=== PATIENT | female | born 2000 | race Caucasian/White ===

== ENCOUNTER 2020-04-04 13:29 | Emergency (ER) | payer BC ==
[~2020-04-04] VITALS: Ht 172.7 cm; Wt 63.7 kg
[2020-04-04] MEDS ORDERED: normal saline 1000ML IV soln IVB ONE ×2 (14:20→15:15)
[2020-04-04] MEDS ORDERED: ondansetron/PF 4mg/2ml inj IV ONE (14:20)
[2020-04-04 14:46] LABS: BASOPHILS % (AUTO) 0.1 % (0-1); EOSINOPHILS % (AUTO) 0.2 % (0-6); HEMATOCRIT 50.7 % (35.0-45.0); HEMOGLOBIN 16.7 g/dl (12.0-16.0); LYMPHOCYTES # (AUTO) 1.1 X10'3 (1.1-4.8); LYMPHOCYTES % (AUTO) 4.7 % (21-51); MEAN CORPUSCULAR HEMOGLOBIN 29.6 PG (27.0-31.0); MEAN CORPUSCULAR HGB CONC 32.8 g/dL (33.0-36.5); MEAN CORPUSCULAR VOLUME 90.3 FL (78-98); MEAN PLATELET VOLUME 9.8 FL (7.4-10.4); MONOCYTES # (AUTO) 0.8 X10'3 (0-0.9); MONOCYTES % (AUTO) 3.4 % (2-12); NEUTROPHILS % (AUTO) 91.6 % (42-75); PLATELET COUNT 235 X10'3 (140-440); RED BLOOD COUNT 5.62 X10'6 (4.20-5.60); RED CELL DISTRIBUTION WIDTH 13.3 % (11.5-14.5)
[2020-04-04 15:03] LABS: ALANINE AMINOTRANSFERASE 20 U/L (12-78); ALBUMIN 5.2 G/DL (3.4-5.0); ALBUMIN/GLOBULIN RATIO 1.4 (1.1-1.5); ALKALINE PHOSPHATASE 70 IU/L (46-116); ANION GAP 5 (8-16); ASPARTATE AMINO TRANSFERASE 12 U/L (10-37); BILIRUBIN,TOTAL 0.7 MG/DL (0.1-1.0); BLOOD UREA NITROGEN 14 MG/DL (7-18); BUN/CREATININE RATIO 17.1 (6.6-38.0); CALCIUM 9.4 MG/DL (8.5-10.1); CHLORIDE 105 MMOL/L (99-107); CREATININE 0.82 MG/DL (0.40-0.90); GLUCOSE 107 MG/DL (70-104); LIPASE 101 U/L (73-393); POTASSIUM 4.6 MMOL/L (3.5-5.1); SODIUM 137 MMOL/L (135-145); TOTAL CARBON DIOXIDE 26.9 MMOL/L (24-32); TOTAL PROTEIN 8.9 G/DL (6.4-8.2); eGFR 88 ML/MIN
[2020-04-04 15:36] LABS: HCG SERUM QL NEGATIVE
--- NOTE | 2020-04-04 15:58 | NUR ---
Mother [facility] [phone].
[2020-04-04 16:04] LABS: CLARITY,URINE SLIGHTLY CLOUDY (Clear); COLOR,URINE YELLOW (Yellow); GLUCOSE, URINE NEGATIVE (Neg); KETONES,URINE TRACE mg/dl (Neg); LEUKOCYTE ESTERASE ,URINE NEGATIVE (Neg); NITRITES, URINE NEGATIVE (Neg); OCCULT BLOOD,URINE SMALL (Neg); PH,URINE 5.5 (4.8-8.0); PROTEIN,URINE >=300 mg/dl (Neg); UROBILINOGEN,URINE 0.2 E.U/dL (0.2-1.0)
[2020-04-04 16:08] LABS: UA COLLECTION TYPE CLN CATCH MIDSTREAM
[2020-04-04 16:10] LABS: BACTERIA,URINE 2+ /HPF (Neg); SQUAMOUS EPITHELIAL CELL,UR MODERATE /LPF (FEW); WBC,URINE TNTC /HPF (0-4)
[2020-04-04 16:11] LABS: MUCUS STRANDS MODERATE /LPF (Neg)
[2020-04-04] MEDS ORDERED: AMOX-422 PO (16:36)
[2020-04-04] MEDS ORDERED: LACT1CAP60 PO (16:36)
[2020-04-04] MEDS ORDERED: ONDA4TAB6 PO (16:45)
[2020-04-04 17:08] VITALS: BP 123/62
== END 2020-04-04 17:09 | disposition home or self-care (01) ==
LOC: ER 13:30 → EDBD 13:30 → ER 17:09
DX: A08.4 Viral intestinal infection, unspecified (principal); R11.2 Nausea with vomiting, unspecified; R07.9 Chest pain, unspecified; R10.31 Right lower quadrant pain; Z72.89 Other problems related to lifestyle; Z79.2 Long term (current) use of antibiotics; Z79.899 Other long term (current) drug therapy
CPT/HCPCS: 36415; 71045; 74176; 80053; 81001; 83605; 83690; 84145; 84703; 85025; 87040; 87088; 93005; 96361; 96374; 99285; J2405; J7030

== ENCOUNTER 2020-04-13 10:49 | Emergency (ER) | payer BC ==
[~2020-04-13] VITALS: Ht 172.7 cm; Wt 64.0 kg
[~2020-04-13 10:49] MED LIST: AMOX-422 PO; LACT1CAP60 PO; ONDA4TAB6 PO
[2020-04-13 12:04] LABS: BASOPHILS % (AUTO) 0.2 % (0-1); EOSINOPHILS # (AUTO) 0.3 X10'3 (0-0.9); EOSINOPHILS % (AUTO) 1.3 % (0-6); HEMATOCRIT 50.1 % (35.0-45.0); HEMOGLOBIN 16.7 g/dl (12.0-16.0); LYMPHOCYTES # (AUTO) 1.7 X10'3 (1.1-4.8); LYMPHOCYTES % (AUTO) 6.4 % (21-51); MEAN CORPUSCULAR HEMOGLOBIN 30.4 PG (27.0-31.0); MEAN CORPUSCULAR HGB CONC 33.4 g/dL (33.0-36.5); MEAN CORPUSCULAR VOLUME 90.8 FL (78-98); MEAN PLATELET VOLUME 10.2 FL (7.4-10.4); MONOCYTES # (AUTO) 1.1 X10'3 (0-0.9); MONOCYTES % (AUTO) 4.2 % (2-12); NEUTROPHILS # (AUTO) 22.7 X10'3 (1.8-7.7); NEUTROPHILS % (AUTO) 87.9 % (42-75); PLATELET COUNT 263 X10'3 (140-440); RED BLOOD COUNT 5.52 X10'6 (4.20-5.60); RED CELL DISTRIBUTION WIDTH 13.4 % (11.5-14.5)
[2020-04-13 12:08] LABS: WHITE BLOOD COUNT 25.8 X10'3 (4.5-11.0)
[2020-04-13 12:15] LABS: ALANINE AMINOTRANSFERASE 26 U/L (12-78); ALBUMIN 5.1 G/DL (3.4-5.0); ALBUMIN/GLOBULIN RATIO 1.4 (1.1-1.5); ALKALINE PHOSPHATASE 71 IU/L (46-116); ANION GAP 13 (8-16); ASPARTATE AMINO TRANSFERASE 14 U/L (10-37); BILIRUBIN,TOTAL 0.7 MG/DL (0.1-1.0); BLOOD UREA NITROGEN 12 MG/DL (7-18); BUN/CREATININE RATIO 14.1 (6.6-38.0); CALCIUM 9.5 MG/DL (8.5-10.1); CHLORIDE 102 MMOL/L (99-107); CREATININE 0.85 MG/DL (0.40-0.90); GLUCOSE 120 MG/DL (70-104); LIPASE 106 U/L (73-393); POTASSIUM 3.5 MMOL/L (3.5-5.1); SODIUM 137 MMOL/L (135-145); TOTAL CARBON DIOXIDE 21.8 MMOL/L (24-32); TOTAL PROTEIN 8.8 G/DL (6.4-8.2); eGFR 84 ML/MIN
[2020-04-13] MEDS ORDERED: normal saline 1000ML IV soln IV ONE (12:15)
[2020-04-13 12:32] LABS: PLATELET ESTIMATE NORMAL; TOTAL CELLS COUNTED 100
[2020-04-13 12:40] LABS: CLARITY,URINE SLIGHTLY CLOUDY (Clear); COLOR,URINE YELLOW (Yellow); GLUCOSE, URINE NEGATIVE (Neg); KETONES,URINE TRACE mg/dl (Neg); LEUKOCYTE ESTERASE ,URINE NEGATIVE (Neg); NITRITES, URINE NEGATIVE (Neg); OCCULT BLOOD,URINE SMALL (Neg); PROTEIN,URINE 100 mg/dl (Neg); UROBILINOGEN,URINE 0.2 E.U/dL (0.2-1.0)
[2020-04-13 12:41] LABS: URINE HCG NEGATIVE (NEG)
--- NOTE | 2020-04-13 12:43 | NUR ---
notified dr del castillo regarding pt abd pain and also nausea,verbal orders for toradol 15 mg iv once ,zofran 4 mg iv once.
[2020-04-13 12:45] LABS: UA COLLECTION TYPE NON-SPECIFIED
[2020-04-13] MEDS ORDERED: ondansetron/PF 4mg/2ml inj IV ONE ×2 (12:45→17:55)
[2020-04-13] MEDS ORDERED: ketorolac tromethamine 15mg/ml inj. IV ONE (12:45)
--- NOTE | 2020-04-13 12:49 | NUR ---
talat is mother, she called her cell is [phone], ok to canvas cutter her info. i called her back with no answer
[2020-04-13 12:52] LABS: MUCUS STRANDS MANY /LPF (Neg); SQUAMOUS EPITHELIAL CELL,UR MODERATE /LPF (FEW)
[2020-04-13 12:53] LABS: BACTERIA,URINE 1+ /HPF (Neg); HYALINE CASTS 0-3 /LPF (NEGATIVE); RBC,URINE 0-2 /HPF (0-2); WBC,URINE 0-4 /HPF (0-4)
[2020-04-13] MEDS ORDERED: diatr meglu/diatrizoate 30ml oral sol.-(3 dose) bottle PO SCH (13:00)
[2020-04-13] MEDS ORDERED: morphine 4 MG/ML inj SYRINge IV PRN (13:00)
[2020-04-13] MEDS: diatr meglu/diatrizoate 30ml oral sol.-(3 dose) bottle PO SCH ×3 (13:28→15:17)
--- NOTE | 2020-04-13 14:33 | NUR ---
SECOND DOSE OF GASTROGRAFIN GIVEN TO PT, VS UPDATED
[2020-04-13] MEDS ORDERED: iohexol 300mg/ml 100ml inj. ONE (15:01)
--- NOTE | 2020-04-13 15:55 | NUR ---
mother called and i updated her that we are waiting on ct results
[2020-04-13] MEDS ORDERED: ONDA4TAB6 PO (18:02)
[2020-04-13 18:13] VITALS: BP 115/86
== END 2020-04-13 18:15 | disposition home or self-care (01) ==
LOC: ER 10:50
DX: K50.90 Crohn's disease, unspecified, without complications (principal); R10.31 Right lower quadrant pain; R11.2 Nausea with vomiting, unspecified; R19.7 Diarrhea, unspecified; Z72.89 Other problems related to lifestyle; Z79.2 Long term (current) use of antibiotics; Z79.899 Other long term (current) drug therapy
CPT/HCPCS: 36415; 71045; 74177; 80053; 81001; 81025; 83605; 83690; 84145; 85025; 87040; 96361; 96374; 96375; 96376; 99285; J1885; J2270; J2405; J7030; Q9963; Q9967